=== PATIENT | female | born 1955 | race Caucasian/White ===

== ENCOUNTER 2023-11-15 14:00 | Outpatient (CLI) | payer MEDICARE, SELFPAY ==
--- NOTE | ~2023-11-15 | DEXA_ITS ---
Bone Density Report Name: VIVIAN MELENDREZ Age: 68 Sex: Female Ethnicity: White Date of : 1955 Indication: postmenopausal; screening for osteoporosis; height loss; Referring Provider: MICHELLE, AMY Florez Study: Bone densitometry was performed. Exam Date: November 15, 2023 Accession number: [id number] Bone Density: Region BMD T-score Z-score Classification AP Spine(L1-L4) 1.009 -0.3 1.6 Normal Femoral Neck (Left) 0.711 -1.2 0.4 Osteopenia Total Hip (Left) 0.976 0.3 1.7 Normal Femoral Neck (Right) 0.733 -1.0 0.6 Normal Total Hip (Right) 0.959 0.1 1.5 Normal Total Hip Mean 0.967 0.2 1.6 Normal World Health Organization criteria for BMD impression classify patients as: Normal (T-score at or above -1.0), Osteopenia (T-score between -1.0 and -2.5), or Osteoporosis (T-score at or below -2.5). 10-year Fracture Risk(1): Major Osteoporotic Fracture 8.4% Hip Fracture 0.8% Reported Risk Factors: [place] (), Neck BMD=0.711, BMI=33.6 (1) FRAX(R) Version 3.08. Fracture probability calculated for an untreated patient. Fracture probability may be lower if the patient has received treatment. Clinical Information Provided by Patient: Patient maximum height was 61 Menopause Age: 61 Drinks caffeinated beverages Onset of menses at age 16 Number of children 2 Impression: The patient has low bone mass, based on the Left Femoral Neck T-score. The patient has an estimated ten-year risk of hip fracture of 0.8% and an estimated ten-year risk of major fracture of 8.4%, based on the WHO FRAX algorithm. Discussion: BONE DENSITY IS LOW AT ONE OR MORE SKELETAL SITES. This patient's lowest T-score is low at one or more skeletal sites. It meets the World Health Organization's (WHO) criteria for ?low bone mass? (T-score between -1.0 and -2.5). The patient's 10-year risk of fracture as calculated by FRAX is less than the threshold where pharmacological therapy is recommended by the National Osteoporosis Foundation (NOF). However, all treatment decisions require clinical judgment and consideration of individual patient factors, including patient preferences, comorbidities, previous drug use, risk factors not captured in the FRAX model (e.g., frailty, falls, vitamin D deficiency, increased bone turnover, interval significant decline in bone density) and possible under or overestimation of fracture risk by FRAX. The patient should follow a healthful lifestyle (good nutrition with adequate calcium and vitamin D, and appropriate weight-bearing exercise). Follow-Up: Consider repeating this study in 2 to 3 years to reassess this patient's status, or sooner if there is some new clinical indication. Reported by: ADELE on 11/15/2023 2:28:00 PM.
--- NOTE | ~2023-11-15 | MM_ITS ---
EXAMINATION: MM screening yaneth BI w kailash HISTORY: Screening TECHNIQUE: Craniocaudal and mediolateral oblique 3-D tomosynthesis images were obtained and synthetic 2-D images were generated. CAD analysis was submitted and interpreted. COMPARISON: 05/10/2019 BREAST PARENCHYMAL COMPOSITION: Not dense: There are scattered areas of fibroglandular density. FINDINGS: There is no evidence of suspicious mass, calcification, or architectural distortion to sugg est malignancy in either breast. There has been no suspicious interval change. IMPRESSION: 1. No mammographic evidence of malignancy. 2. Recommend routine screening mammography in one year. BI-RADS Category 1: Negative Reviewed, dictated and finalized at location B.
== END 2023-11-15 14:01 | disposition home or self-care (01) ==
LOC: ANHIMG 14:04
PROVIDERS: PCP Family Medicine; Visit Provider Physician Assistant
DX: Z12.31 Encounter for screening mammogram for malignant neoplasm of breast (principal); Z78.0 Asymptomatic menopausal state; M85.852 Other specified disorders of bone density and structure, left thigh
CPT/HCPCS: 77063; 77067; 77080

== ENCOUNTER 2024-05-03 09:18 | Outpatient (CLI) | payer MEDICARE, SELFPAY ==
--- NOTE | 2024-05-03 11:00 | NEURO_ITS ---
Impression: # Complains of increasing numbness of hands. ? # Bilateral moderate Carpal Tunnel Syndrome. # No ulnar neuropathy. ? # Needle/EMG exam abnormal in APB?s. Nerve Conduction Studies Anti Sensory Summary Table ?Stim Site NR Peak (ms) P-T Amp (?V) Site1 Site2 Delta-P (ms) Dist (cm) Griffin (m/s) Left Median Anti Sensory (2-3nd Digit) Wrist ? 4.4 45.4 Wrist 2-3nd Digit 4.4 14.0 32 Wrist ? 4.5 25.4 Wrist 2-3nd Digit 4.4 14.0 32 Right Median Anti Sensory (2-3nd Digit) Wrist ? 4.8 24.2 Wrist 2-3nd Digit 4.8 14.0 29 Wrist ? 4.9 42.8 Wrist 2-3nd Digit 4.8 14.0 29 Left Radial Anti Sensory (Base 1st Digit) Wrist ? 1.7 41.1 Wrist Base 1st Digit 1.7 0.0 Right Radial Anti Sensory (Base 1st Digit) Wrist ? 2.1 22.4 Wrist Base 1st Digit 2.1 0.0 Left Ulnar Anti Sensory (5th Digit) Wrist ? 2.2 74.9 Wrist 5th Digit 2.2 14.0 64 Right Ulnar Anti Sensory (5th Digit) Wrist ? 2.0 57.5 Wrist 5th Digit 2.0 14.0 70 Motor Summary Table ?Stim Site NR Onset (ms) O-P Amp (mV) Site1 Site2 Delta-0 (ms) Dist (cm) Griffin (m/s) Left Median Motor (Abd Poll Brev) Wrist ? 4.7 3.1 Elbow Wrist 4.8 26.0 54 Elbow ? 9.5 2.9 Right Median Motor (Abd Poll Brev) Wrist ? 4.7 4.8 Elbow Wrist 4.8 26.0 54 Elbow ? 9.5 4.6 Left Ulnar Motor (Abd Dig Minimi) Wrist ? 2.5 7.8 A Elbow Wrist 5.0 28.0 56 A Elbow ? 7.5 4.5 Right Ulnar Motor (Abd Dig Minimi) Wrist ? 2.3 7.9 A Elbow Wrist 4.9 29.0 59 A Elbow ? 7.2 7.3 F Wave Studies ?NR F-Lat (ms) L-R F-Lat (ms) Left Median (Mrkrs) (Abd Poll Brev) ? 30.16 0.94 Right Median (Mrkrs) (Abd Poll Brev) ? 29.22 0.94 Left Ulnar (Mrkrs) (Abd Dig Min) ? 26.28 0.03 Right Ulnar (Mrkrs) (Abd Dig Min) ? 26.25 0.03 EMG ?Side Muscle Nerve Root Ins Act Fibs Amp Dur Recrt Comment Right 1stDorInt Ulnar C8-T1 Nml Nml Nml Nml Nml Right Ext Indicis Radial (Post Int) C7-8 Nml Nml Nml Nml Nml Right Ext Digitorum Radial (Post Int) C7-8 Nml Nml Nml Nml Nml Right BrachioRad Radial C5-6 Nml Nml Nml Nml Nml Right PronatorTeres Median C6-7 Nml Nml Nml Nml Nml Right Abd Poll Brev Median C8-T1 Nml Nml Nml >12ms +1 Right ABD Dig Min Ulnar C8-T1 Nml Nml Nml Nml Nml Left 1stDorInt Ulnar C8-T1 Nml Nml Nml Nml Nml Left Ext Indicis Radial (Post Int) C7-8 Nml Nml Nml Nml Nml Left Ext Digitorum Radial (Post Int) C7-8 Nml Nml Nml Nml Nml Left BrachioRad Radial C5-6 Nml Nml Nml Nml Nml Left PronatorTeres Median C6-7 Nml Nml Nml Nml Nml Left Abd Poll Brev Median C8-T1 Nml Nml Nml >12ms +1 Left ABD Dig Min Ulnar C8-T1 Nml Nml Nml Nml Nml MTDD
== END 2024-05-03 09:19 | disposition home or self-care (01) ==
PROVIDERS: PCP Family Medicine; Visit Provider Plastic Surgery
DX: G56.03 Carpal tunnel syndrome, bilateral upper limbs (principal)
CPT/HCPCS: 95886; 95911

== ENCOUNTER 2024-06-08 05:51 | Day surgery (SDC) | payer MEDICARE, SELFPAY ==
[2024-04-04 08:41] VITALS: BMI 33.8
--- OUTSIDE RECORDS SUMMARY | 2024-06-08 06:06 | XMS_ITS | Continuity of Care Document ---
Author Organization [facility] Address [address] [place] [address] Phone Care Team Providers Care Senior Mechanical Designer Name Role Phone Hood Noble Unavailable Unavailable Advance Directives Directive Yes / No Effective Date File Name No Information Encounters Encounter Description Practice Location Reason(s) For Visit Diagnoses Date Provider Providers Copied on Encounter [facility], [address], [place], [place], [address], [place] tel:[phone] [facility] No Information [phone] Doisy Edward. [address] , [address], [place], [address], [place]. tel:[phone] Family History Family Member Type Diagnosis Age At Onset No Information Payers Payer name Insurance type Covered republican ID Authoriza tion(s) No Information Social History Type Description Quantity Date Captured Comments Sex Female Smoking Status No Information Chief Complaint And Reason For Visit No Information Reason For Referral Reason For Referral No Information History Of Present Illness Encounter Date Complaint History Of Prese nt Illness No Information Functional Status Date Functional Assessmen t No Information Instructions Date Instruction Additional Infor mation No Information Assessments Type Assessment Date No Information Patient Care Teams Name Effective Dates (start - stop) Status Members No Information
[2024-06-08 06:22] VITALS: BP 143/81; PULSE 79; RESP 18; TEMP 37.1; O2SAT 98; BMI 33.6
[2024-06-08 06:39] LABS: Glucose Point of Care 186 mg/dl (65-105)
[2024-06-08] MEDS: LACTATED RINGERS 1,000 ML 30 ML IV CONT (06:39)
--- NOTE | 2024-06-08 06:48 | P.OP_ITS ---
Procedure Note - Detailed Date of Procedure 06/08/24 Pre-op Diagnosis LT Carpal Tunnel Syndrome, L MF mucous cyst Post-op Diagnosis Same Procedure Performed left ectr and L MF mucous cyst excision Surgeon Alina Wiley MD Electric Knife Operator michael villarreal pa-c Anesthesia MAC Description of Procedure INFORMED CONSENT: The patient was seen and examined and marked in the pre-op area.? The patient signed the consent form. PROCEDURE IN DETAIL:The patient taken back to OR on the stretcher in supine position. Time out performed with anesthesia, surgeon and staff agreeing on patient's name site and surgery to be performed SCDs were placed on the lower extremities and inflated. A tourniquet was placed on {left} upper extremity and antibiotics given IV After anesthesia administered sedation I injected {5}cc 1%lido with epi and 0.5% marcaine plain at the operative site The?{left upper extremity}?was prepped and draped in sterile fashion the??{left upper extremity} was? exsanguinated with Esmarch bandage and tourniquet inflated to 250mmHg I made a transverse incision in the {left} volar distal wrist crease through skin and dermis with 15 blade scalpel.? Littler scissors spread down to antebrachial fascia. A small incision was made in antebrachial fascia allowing access to Carpal tunnel. I proceeded with sequential dilation staying in line with the ring finger and hugging the hook of the hamate.? I then used the synovial elevator to free any adhesions from the underside of the transverse carpal ligament. Next I was able to insert the Microaire endoscopic carpal tunnel device with direct visualization of the transverse fibers on the monitor and proceeded with complete segmental retrograde release of the ligament in its entirety.? I irrigated with normal saline and closed with 4-0 monocryl for dermis and subcuticular closure. Next I proceeded with making a cuvilinear incision over the left middle finger dipjoint cyst/mass with 15 blade through skin and dermis. I elevated skin flap with 15 blade. I circumferentaillty dissected around the mucous cyst arising from dipjoint and excised it off joint capsule. An osteophyte was identified arising from the distal phalanx. Using a 15 blade and made an incision down through periosteum over the osteophyte. This was reflected with Jackson elevator. Rongeur was used to remove this osteophyte until smooth. I irrigated with normal saline. bipolkar cautery was used for the base of the cyst and osteophyte and the capuslar defect was not able to be repaired. 4-0 chromic was used for skin. A dressing of Dermabond for the wrist and xeroform for finger, 4x4, garland, and a volar splint and tube gauze was applied for patient safety, security, and comfort and secured with an jonas bandage after the tourniquet was let down noting the hand was warm and well perfused. The patient was then awaken from anesthesia and transferred to the recovery room in stable condition.? Complications - none EBL- 0cc Disposition - home in stable conditions michael villarreal pa-c was essential for positioning, retraction, closure and dress ing placement [facility] Billing Surgery - Charge Forward: Surgery Billing ([id number], [id number] and [id number],59 for michael)
--- NOTE | 2024-06-08 06:48 | WPDHPUPDATE1 ---
History and Physical Update Update Date/Time: 06/08/24 06:48 Patient seen and examined in pre-operative holding area. No interval change in medical history or symptoms. Patient recalls previous discussion of benefits and alternatives to procedure. Continues to desire to proceed with left endoscopic possible open carpal tunnel release and left middle finger mucous cyst excision . Reviewed procedure, post-op expectations and risks including but not limited to bleeding, infection, injury to tendon/nerve/vessel, decreased hand function, stiffness, RSD, no change or worsening of symptoms, recurrence. I discussed the possible use of assistants and their participation in the case. Patient stated understanding and signed the consent form wishing to proceed.
--- NOTE | 2024-06-08 06:59 | P.PNAN_ITS ---
Anes - Initial Pre Proc Eval Procedure: Operation Date: 06/08/24 07:30 Proposed Procedures p Left Endoscopic Carpal Tunnel Release, Possible Open Carpal Tunnel Release - Alina Wiley MD s Excision Mucous Cyst Left Middle Finger - Alina Wiley MD Date/Time: 06/08/24 06:59 Surgeon: Alina Wiley MD Pre Op Diagnosis: LT Carpal Tunnel Syndrome, Digital Mucous Cyst LT Patient Data Age: 69 Gender: F Height: 1.57 m Weight: 83.4 kg Last Vital Signs Temp 37.1 C 06/08/24 06:22 Pulse 79 06/08/24 06:22 Resp 18 06/08/24 06:22 BP 143/81 H 06/08/24 06:22 Pulse Ox 98 06/08/24 06:22 O2 Del Method Room Air 06/08/24 06:22 Allergies Allergy/AdvReac Type Severity Reaction Status Date / Time No Known Drug Allergies Allergy Unknown unknown Verified 06/08/24 06:12 Home Medications ?Medication ?Instructions ?Recorded ?Confirmed ?Type semaglutide 0.25 mg or 0.5 mg (2 0.5 mg (0.736 mL) subcut WEEKLY #9 12/10/23 06/08/24 Rx mg/3 mL) subcutaneous pen injector mL (Ozempic) metformin 1,000 mg tablet 1,000 mg PO BID #180 tabs 03/02/24 06/08/24 Rx simvastatin 40 mg tablet See Rx Instructions .Route 03/02/24 06/08/24 Rx .COMPLEX #90 tabs calcium 250 mg tablet 1,000 mg PO DAILY 05/18/24 06/08/24 History multivitamin (Daily Multi-Vitamin 1 tablet PO DAILY 05/18/24 06/08/24 History tablet) Laboratory Tests 06/08/24 06:35 POC Capillary Glucose 186 H mg/dl (65-105) Patient hx anesthesia problems: none Family hx anesthesia problems: none Results Review: All pre-operative results and documents have been reviewed as part of the pre- operative evaluation. [facility] Past Medical History Medical History Mixed hyperlipidemia Type 2 diabetes mellitus without complication, without long-term current use of insulin Vitamin D deficiency Family History Family History Other Diabetes mellitus Family history of coronary artery disease Social History Social History Smoking packs per day: 1 Smoking cigarettes per day: 20.0 Years smoked: 20 Smoking pack-years: 20.00 Smoking status: Former smoker Tobacco type: cigarettes Second hand tobacco smoke exposure: No Smoking end date: 04/26/99 Alcohol intake: current Alcohol use details: seldom; socially Substance use: never Substance use type: does not use Living arrangements: with family Van - Cara Final PreProcedure Day of Procedure 06/08/24 06:59 Patient weight: obese Heart: regular rate and rhythm Lungs: clear to auscultation Airway: Mallampati scale class III Neurological: alert and oriented Last oral intake: >/= 8 hours ASA classification: III Emergent: no Anesthetic plan: proceed Anesthesia type and monitoring: general GIVS and standard monitoring Results Review: All pre-operative results and documents have been reviewed as part of the pre- operative evaluation. Informed Consent: The patient's anesthetic plan and its attendant risks and benefits were discussed with the patient/family/POA. Questions were solicited and answers provided to the satisfaction of the patient/family/POA.
[2024-06-08] MEDS: ceFAZolin SODIUM 2 GM/20 ML SW SYRINGE IV PUSH (07:25)
[2024-06-08] MEDS: BUPivacaine HCL 0.5% 10 ML AMP 2.5 ML INFILTRATE (07:29)
[2024-06-08] MEDS: LIDO 1%/EPINEPHRINE 1:100,000 10 ML VIAL 2.5 ML INFILTRATE (07:29)
[2024-06-08 07:55] VITALS: BP 116/54; PULSE 81; RESP 16; O2SAT 95
--- NOTE | 2024-06-08 08:02 | WPDANESPN ---
Anes - Prog Note Post-Op Date/Time: 06/08/24 08:02 Cardiovascular status: normal Respiratory status: normal Airway patency: baseline Mental status: baseline Post-Op hydration status: normal Vital Signs: Last Vital Signs Temp 37.1 C 06/08/24 06:22 Pulse 79 06/08/24 06:22 Resp 18 06/08/24 06:22 BP 143/81 H 06/08/24 06:22 Pulse Ox 98 06/08/24 06:22 O2 Del Method Room Air 06/08/24 06:22 Pain Score (VAS): 0 06/08/24 06:35 POC Capillary Glucose 186 H Patient Feedback: Patient satisfied with anesthetic care.
[2024-06-08 08:05] VITALS: BP 111/58; PULSE 74; RESP 15; O2SAT 93
[2024-06-08 08:15] VITALS: BP 129/59; PULSE 82; RESP 15; O2SAT 96
[2024-06-08 08:25] VITALS: BP 138/80; PULSE 70; RESP 15; O2SAT 95
== END 2024-06-08 08:45 | disposition home or self-care (01) ==
PROVIDERS: PCP Family Medicine; Visit Provider Plastic Surgery
PROC: 01N54ZZ Release Median Nerve, Percutaneous Endoscopic Approach (ICD-10-PCS; CPT 29848; principal; 2024-06-08 07:30)
PROC: (CPT 29848; 2024-06-08 07:30)
DX: G56.02 Carpal tunnel syndrome, left upper limb (principal); M25.742 Osteophyte, left hand
CPT/HCPCS: 29848; 26210

== ENCOUNTER 2024-06-08 07:00 | Outpatient (NON) | payer MEDICARE, SELFPAY ==
--- OUTSIDE RECORDS SUMMARY | 2024-06-09 11:30 | XMS_ITS | Continuity of Care Document ---
Author Organization [facility] Address [address] [place] [address] Phone Care Team Providers Care Utility Clerk Name Role Phone Hood Noble Unavailable Unavailable Advance Directives Directive Yes / No Effective Date File Name No Information Encounters Encounter Description Practice Location Reason(s) For Visit Diagnoses Date Provider Providers Copied on Encounter [facility], [address], [place], [place], [id number], [place] tel:[phone] [facility] No Information 0 [phone] Doisy Edward. [address] , [address], [place], [address], [place]. tel:[phone] Family History Family Member Type Diagnosis Age At Onset No Information Payers Payer name Insurance type Covered alliance party ID Authoriza tion(s) No Information Social History [...]
== END 2024-06-08 07:01 | disposition home or self-care (01) ==
LOC: ANHLAB 06-09 11:22
PROVIDERS: PCP Family Medicine; Visit Provider Plastic Surgery
DX: M25.842 Other specified joint disorders, left hand (principal); M67.449 Ganglion, unspecified hand
CPT/HCPCS: 88305

== ENCOUNTER 2024-07-27 06:49 | Day surgery (SDC) | payer MEDICARE, SELFPAY ==
[2024-05-11 08:37] VITALS: BMI 33.8
[2024-07-07 09:36] VITALS: BMI 33.7
--- NOTE | 2024-07-27 06:43 | WPDHPUPDATE1 ---
History and Physical Update Update Date/Time: 07/27/24 06:43 Patient seen and examined in pre-operative holding area. No interval change in medical history or symptoms. Patient recalls previous discussion of benefits and alternatives to procedure. Continues to desire to proceed with right endoscopic possible open carpal tunnel release. Reviewed procedure, post-op expectations and risks including but not limited to bleeding, infection, injury to tendon/nerve/vessel, decreased hand function, stiffness, RSD, no change or worsening of symptoms. I discussed the possible use of assistants and their participation in the case. Patient stated understanding and signed the consent form wishing to proceed.
--- NOTE | 2024-07-27 06:44 | W.PM.PROC2 ---
Procedure Note - Detailed Date of Procedure 07/27/24 Pre-op Diagnosis Right Carpal Tunnel Syndrome Post-op Diagnosis Same Procedure Performed right ectr Surgeon Alina Wiley MD Junior Software Engineer michael villarreal pa-c Anesthesia MAC Description of Procedure INFORMED CONSENT: The patient was seen and examined and marked in the pre-op area.? The patient signed the consent form. PROCEDURE IN DETAIL:The patient taken back to OR on the stretcher in supine position. Time out performed with anesthesia, surgeon and staff agreeing on patient's name site and surgery to be performed SCDs were placed on the lower extremities and inflated. A tourniquet was placed on {right} upper extremity and antibiotics given IV After anesthesia administered sedation I injected {5}cc 1%lido with epi and 0.5% marcaine plain at the operative site The?{right upper extremity}?was prepped and draped in sterile fashion the??{right upper extremity} was? exsanguinated with Esmarch bandage and tourniquet inflated to 250mmHg I made a transverse incision in the {right} volar distal wrist crease through skin and dermis with 15 blade scalpel.? Littler scissors spread down to antebrachial fascia. A small incision was made in antebrachial fascia allowing access to Carpal tunnel. I proceeded with sequential dilation staying in line with the ring finger and hugging the hook of the hamate.? I then used the synovial elevator to free any adhesions from the underside of the transverse carpal ligament. Next I was able to insert the Microaire endoscopic carpal tunnel device with direct visualization of the transverse fibers on the monitor and proceeded with complete segmental retrograde release of the ligament in its entirety.? I irrigated with normal saline and closed with 4-0 monocryl for dermis and subcuticular closure. A dressing of Dermabond, 4x4, garland, and a volar splint was applied for patient safety, security, and comfort and secured with an jonas bandage after the tourniquet was let down noting the hand was warm and well perfused. The patient was then awaken from anesthesia and transferred to the recovery room in stable condition.? Complications - none EBL- 0cc Disposition - home in stable conditions Michael Villarreal PA-C was essential for positioning, retraction, closure and dressing placement [facility] Billing Surgery - Charge Forward: Surgery Billing ([id number] for michael)
--- OUTSIDE RECORDS SUMMARY | 2024-07-27 07:07 | XMS_ITS | Continuity of Care Document ---
Author Organization [facility] Address [address] [place] [address] Phone Care Team Providers Care Supervisor Rubber Covering Name Role Phone Hood Noble Unavailable Unavailable Advance Directives Directive Yes / No Effective Date File Name No Information Encounters Encounter Description Practice Location Reason(s) For Visit Diagnoses Date Provider Providers Copied on Encounter [facility], [address], [place], [place], [address], [place] tel:[phone] [facility] No Information 0 [phone] Doisy Edward. [address] , [address], [place], [address], [place]. tel:[phone] Family History Family Member Type Diagnosis Age At Onset No Information Payers Payer name Insurance type Covered democrat ID Authoriza tion(s) No Information Social History [...]
[2024-07-27 07:25] VITALS: BP 140/76; PULSE 73; RESP 16; TEMP 36.7; O2SAT 99; BMI 32.4
[2024-07-27 07:44] LABS: Glucose Point of Care 109 mg/dl (65-105)
[2024-07-27] MEDS: LACTATED RINGERS 1,000 ML 30 ML IV CONT (07:45)
--- NOTE | 2024-07-27 07:58 | P.PNAN_ITS ---
Anes - Initial Pre Proc Eval Procedure: Operation Date: 07/27/24 09:00 Proposed Procedures p Right Endoscopic Carpal Tunnel Release, Possible Open Carpal Tunnel Release - Alina Wiley MD Date/Time: 07/27/24 07:58 Surgeon: Alina Wiley MD Pre Op Diagnosis: Right Carpal Tunnel Syndrome Patient Data Age: 69 Gender: F Height: 1.55 m Weight: 77.9 kg Last Vital Signs Temp 36.7 C 07/27/24 07:25 Pulse 73 07/27/24 07:25 Resp 16 07/27/24 07:25 BP 140/76 07/27/24 07:25 Pulse Ox 99 07/27/24 07:25 O2 Del Method Room Air 07/27/24 07:25 Allergies Allergy/AdvReac Type Severity Reaction Status Date / Time No Known Drug Allergies Allergy Unknown unknown Verified 07/27/24 07:18 Home Medications ?Medication ?Instructions ?Recorded ?Confirmed ?Type semaglutide 0.25 mg or 0.5 mg (2 0.5 mg (0.736 mL) subcut WEEKLY #9 12/10/23 07/27/24 Rx mg/3 mL) subcutaneous pen injector mL (Ozempic) metformin 1,000 mg tablet 1,000 mg PO BID #180 tabs 03/02/24 07/27/24 Rx simvastatin 40 mg tablet See Rx Instructions .Route 03/02/24 07/27/24 Rx .COMPLEX #90 tabs calcium 250 mg tablet 1,000 mg PO DAILY 05/18/24 07/07/24 History multivitamin (Daily Multi-Vitamin 1 tablet PO DAILY 05/18/24 07/27/24 History tablet) lisinopril 2.5 mg tablet 2.5 mg PO DAILY #90 tabs 07/05/24 07/27/24 Rx Laboratory Tests 07/27/24 07:42 POC Capillary Glucose 109 H mg/dl (65-105) Patient hx anesthesia problems: none Family hx anesthesia problems: none Results Review: All pre-operative results and documents have been reviewed as part of the pre- operative evaluation. [facility] Past Medical History Medical History Mixed hyperlipidemia Type 2 diabetes mellitus without complication, without long-term current use of insulin Vitamin D deficiency Family History Family History Other Diabetes mellitus Family history of coronary artery disease Social History Social History Smoking packs per day: 0 Smoking cigarettes per day: 0.0 Years smoked: 20 Smoking pack-years: 0.00 Smoking status: Former smoker Tobacco type: cigarettes Second hand tobacco smoke exposure: No Smoking end date: 04/26/94 Alcohol intake: current Alcohol use details: seldom; socially Substance use: never Substance use type: does not use Living arrangements: with family Spiritual care concerns: No Anes - Eval Final PreProcedure Day of Procedure 07/27/24 07:58 Patient weight: obese Heart: regular rate and rhythm Lungs: clear to auscultation Airway: Mallampati scale class II Neurological: alert and oriented Last oral intake: >/= 8 hours ASA classification: III Emergent: no Anesthetic plan: proceed Anesthesia type and monitoring: general GIVS and standard monitoring Results Review: All pre-operative results and documents have been reviewed as part of the pre- operative evaluation. Informed Consent: The patient's anesthetic plan and its attendant risks and benefits were discussed with the patient/family/POA. Questions were solicited and answers provided to the satisfaction of the patient/family/POA.
[2024-07-27] MEDS: ceFAZolin SODIUM 2 GM/20 ML SW SYRINGE IV PUSH (08:44)
[2024-07-27] MEDS: BUPivacaine HCL 0.5% PF 30 ML VIAL 5 ML INFILTRATE (08:57)
[2024-07-27] MEDS: LIDO 1%/EPINEPHRINE 1:100,000 10 ML VIAL 5 ML INFILTRATE (08:57)
[2024-07-27 09:03] VITALS: BP 96/54; PULSE 70; RESP 14; O2SAT 98
[2024-07-27 09:13] VITALS: BP 101/59; PULSE 70; RESP 14; O2SAT 95
--- NOTE | 2024-07-27 09:13 | WPDANESPN ---
Anes - Prog Note Post-Op Date/Time: 07/27/24 09:13 Cardiovascular status: normal Respiratory status: normal Airway patency: baseline Mental status: baseline Post-Op hydration status: normal Vital Signs: Last Vital Signs Temp 36.7 C 07/27/24 07:25 Pulse 73 07/27/24 07:25 Resp 16 07/27/24 07:25 BP 140/76 07/27/24 07:25 Pulse Ox 99 07/27/24 07:25 O2 Del Method Room Air 07/27/24 07:25 Pain Score (VAS): 0/10 07/27/24 07:42 POC Capillary Glucose 109 H Patient Feedback: Patient satisfied with anesthetic care.
[2024-07-27 09:23] VITALS: BP 108/56; PULSE 63; RESP 14; O2SAT 95
[2024-07-27 09:33] VITALS: BP 116/61; PULSE 62; RESP 14; O2SAT 98
== END 2024-07-27 09:40 | disposition home or self-care (01) ==
PROVIDERS: PCP Family Medicine; Visit Provider Plastic Surgery
PROC: 01N54ZZ Release Median Nerve, Percutaneous Endoscopic Approach (ICD-10-PCS; CPT 29848; principal; 2024-07-27 09:00)
DX: G56.01 Carpal tunnel syndrome, right upper limb (principal)
CPT/HCPCS: 29848

== ENCOUNTER 2025-03-29 09:04 | Outpatient (CLI) | payer OTHER, SELFPAY ==
[2025-03-29 09:37] LABS: Hematocrit 45.4 % (37.0-47.0); Hemoglobin 15.3 g/dL (12.0-15.0); Mean Corpuscular HGB Conc 33.7 g/dl (32-36); Mean Corpuscular Hemoglobin 29.9 pg (26-34); Mean Corpuscular Volume 88.7 fl (80-100); Platelet Count Result 214 k/mm3 (150-375); Red Blood Count 5.12 M/mm3 (4.2-5.4); White Blood Count 6.0 K/mm3 (4.5-10.0)
[2025-03-29 09:52] LABS: Hemoglobin A1C 5.6 % (<5.7)
[2025-03-29 09:57] LABS: Iron 88 ug/dL (37-170)
[2025-03-29 09:58] LABS: Alanine Aminotransferase 17 U/L (6-35); Albumin Level 4.6 g/dL (3.5-5.1); Alkaline Phosphatase 71 U/L (38-126); Anion Gap 3 mmol/L (4-12); Aspartate Amino Transferase 27 U/L (14-36); Bilirubin,Total 0.6 mg/dL (0.2-1.3); Blood Urea Nitrogen 16 mg/dL (7-17); Calcium 9.6 mg/dL (8.4-10.2); Carbon Dioxide 29 mmol/L (22-30); Chloride 105 mmol/L (98-107); Estimated Glomerular Filt Rate > 60; Glucose 90 mg/dL (65-110); Potassium 4.3 mmol/L (3.4-5.0); Sodium 137 mmol/L (137-145); Total Protein 7.9 g/dL (6.3-8.2)
[2025-03-29 10:05] LABS: Prealbumin 25.2 mg/dL (17.6-36.0)
[2025-03-29 11:09] LABS: Vitamin B12 630.0 pg/mL (239-931)
[2025-04-01 09:07] LABS: Vit. B1, Whole Blood 116.2 nmol/L (66.5-200.0)
[2025-04-02 01:07] LABS: Copper, Serum or Plasma 112 ug/dL (80-158)
== END 2025-03-29 09:05 | disposition home or self-care (01) ==
LOC: ANHLAB 09:08
PROVIDERS: PCP Family Medicine; Visit Provider Surgery Plastic and Reconstructive Surgery
DX: R63.4 Abnormal weight loss (principal)
CPT/HCPCS: 36415; 80053; 82525; 82607; 82746; 83036; 83540; 84134; 84425; 85027

== ENCOUNTER 2025-04-10 14:47 | Outpatient (CLI) | payer MEDICARE, SELFPAY ==
--- NOTE | ~2025-04-10 | CT_ITS ---
EXAMINATION: CT abdomen pelvis w con DATE: 04/10/2025 15:26 INDICATION: Intra-abdominal and pelvic swelling. TECHNIQUE: Computed tomography (CT) of the abdomen and pelvis was performed with 100 mL Omnipaque 350 intravenous contrast. Automated exposure control and iterative reconstruction technique were employed. The dose-length product was 485.58 mGy-cm. COMPARISON: None. FINDINGS: The visualized portions of the lung bases demonstrate mild atelectasis. No pleural effusion. The heart size is normal. No pericardial effusion. There is a small sliding hiatal hernia. The liver, gallbladder, spleen, pancreas, adrenal glands, and right kidney are normal. There is a 5 mm cyst in left kidney. There is diverticulosis of the colon without evidence of diverticulitis. There are no dilated loops of bowel. The appendix is normal. There are no pathologically enlarged lymph nodes. There is no free intraperitoneal fluid. There is mild thoracic and lumbar spondylosis. IMPRESSION: 1. Small sliding hiatal hernia. Reviewed, dictated and finalized at location E. TENANCE DEPARTMENT MANAGER
--- OUTSIDE RECORDS SUMMARY | 2025-04-10 17:17 | XMS_ITS | Data Portability ---
Author Organization [facility] [place] Address [address] [place] [address] Care Team Providers Care Food Cart Attendant Name Role Phone KARON QUINONEZ Primary Care Provider Assessment Encounter Date Assessment Date Assessment LastModified by Organization Details LastModified Time 04/16/2021 04/16/2021 pap done US for bleeding discussed need for endometrial sampling to rule out hyperplasia or malignancy mammo ordered encouraged diabetic control to avoid infections diflucan x2 [email or web address] Not available 04/16/2021 12:03:00 05/12/2021 05/12/2021 US results reviewed and discussed in depth. EMB done, will call with results. working to control DM better. [email or web address] Not available 05/12/2021 13:06:47 Plan of Treatment Reminders Order Date Submit Date Provider Last Modified By Organization Details Last Modified Time Details Appointments None recorded. Lab None recorded. Referral None recorded. Procedures None recorded. Surgeries None recorded. Imaging US, pelvis 2020 021 [email or web address] [address], [place], [address], 15:35:39 US, transvagina l 2020 021 [email or web address] [address], [place], [address], 16:17:04 Medication Orders fluconazole 150 mg tablet 2020 021 SOURAV [facility] [id number] [facility], [address], [place], [address], 11:52:06 Patient TargetsNo targets recorded. Patient InstructionsNo instructions recorded. Reason for Referral None Reported. Results Created Date Observation Date Name Description Value Unit Range Abnormal Flag Note LastModifiedBy Organization Detail LastModifiedTime 04/16/20 21 04/16/2021 IMAGE GUIDE D PAP AND HPV REGAR DLESS image guided Pap, HPV regardless of Pap result SEE RESULT S BELOW CASE REPOR T: Cytol ogy Gynec ologi leo Repor t Case: [id number] Autho mariah g Provi bryan: Valeria Pollard, MD Walker cted: 04/16 1624 Order ing Locat ion: [place] Patho logy Recei hal: 04/17 0039 First Scree n: Suyapa Hickman , CT Speci men: Scree harleen Pap - Image d, Cervi x STATE MENT OF ADEQU ACY: Satis facto ry for evalu ation Trans forma tion zone compo nent prese nt FINAL DIAGN OSIS: Negat jesus for Intra epith elial Lesio n or Keshawn villalobos (NIL) . Elect geetha jordan niharika d by Suyapa Hickman , CT on 022 at 12:44 PM ----- ----- ----- ----- ----- ----- ----- ----- ----- ----- ----- ----- ----- ----- ----- ----- ----- ---- HPV RESUL TS: HPV mRNA E6/E7 : No HPV mRNA Detec lucho NOTE: This high risk HPV mRNA assay detec ts fourt een high- risk HPV types (16, 18, 31, 33, 35, 39, 45, 51, 52, 56, 58, 59, 66, 68) witho ut diffe renti ation . COMME NT: Note: This speci men was revie wed by a Cytot echno logis t and/o r Patho logis t (as indic ated in this repor t) after evalu ation using the Thinp rep Imagi ng Syste m. CLINI LEO INFOR MATIO N: Menst rual Statu s: LMP (if appli cable ): Clini leo Histo ry/Pr eviou s Pap: Type of Neopl leticia (if appli cable ): Signi fican t Clini leo Findi ngs: Other Histo ry: Hormo nam (if appli cable ): PAP EDUCA JACINTO L NOTE: The Pap Test is a scree harleen test with an inher ent false negat jesus rate. Liqui d-bas e sampl ing may decre ase, but will not elimi karen, false negat jesus resul ts. A negat jesus resul t does not precl ude the prese nce and/o r devel opmen t of disea se, since the prese nce of abnor mal cells in the sampl e depen ds on the locat ion of the lesio n and sampl ing techn ique. Chuck nued regul ar scree harleen is the best metho d of cance r preve ntion . If repor lucho cytol ogic findi ng do not corre late with physi leo and/o r histo rical findi ngs, furth er inves tigat ion is recom thuy d, as clini compa burt nted. Not Available [facility] (Lab) [address], [place], [address], 04/28/2021 13:47:54 05/12/19 22 05/12/2021 SURGI LEO PATHO LOGY surgical pathology SEE RESULT S BELOW CASE REPOR T: Surgi leo Patho logy Repor t Case: [id number] Autho mariah g Provi bryan: Valeria Pollard MD Colle cted: 05/12 1530 Order ing Locat ion: [place] Patho [place] Recei hal: 05/13 0122 Patho logis t: Harika Sandoval MD Speci men: Endom etriu m, emb FINAL DIAGN OSIS: Endom etriu m, biops y: -Frag ments of benig n endom etria l polyp . -No endom etria l hyper plasi a or malig nant tumor ident ified . Elect geetha mcguire by Harika Sandoval MD on 2021 at 2:27 PM ----- ----- ----- ----- ----- ----- ----- ----- ----- ----- ----- ----- ----- ----- ----- ----- ----- ---- CLINI LEO INFOR MATIO N: not provi ded MICRO SCOPI C DESCR IPTIO N: A micro scopi c exami natio n was perfo rmed. GROSS DESCR IPTIO N: A. Endom etriu m. The speci men is label ed with the patie nt's name, ryan linder and EMB. Recei hal in forma kayla is a 0.4 cm fragm ent of white -corea tissu e. The entir e speci men is submi tted in one casse tte. Gross ed by Dino Mills on Not Available [facility] (Lab) [address] [facility], [place], [address], 05/13/2021 15:30:28 04/23/20 21 04/23/2021 US, taco hoover No observ ation record ed. [email or web address] [place] [address], [place], [address], 04/23/2021 19:08:16 04/23/20 21 04/23/2021 US, claudia vazquez No observ ation record ed. [email or web address] [place] [address], [place], [address], 04/23/2021 19:08:24 04/23/20 21 04/23/2021 US, taco s No observ ation record ed. catie Mckeon [address], [place], [address], 05/13/2021 17:07:45 Result Notes None recorded. Procedures Surgical History Date Name Laterality Status Provider Name and Address Organization Details Recorded Time 05/12/19 Endometrial Biopsy completed Valeria Sandhu MD [address], [place], [address], [facility] 05/12/2021 13:06:11 04/26/19 Date of Last Pap Smear completed [facility] 04/16/2021 10:58:25 Tubal Ligation completed [facility] 04/16/2021 09:16:32 Imaging Results None recorded. Procedure Notes None recorded. Medical Equipment None Reported. Allergies No known drug allergies Medications Name Sig Start Date Stop Date Status Note LastModified by Organization Details LastModified Time fluconazole 150 mg tablet Take 1 tablet every 72 hours by oral route. active Not Available Not Available No t Available meloxicam 15 mg tablet active Not Available Not Available Not Available spironolactone 25 mg tablet active Not Available Not Available Not Available simvastatin 40 mg tablet active Not Available Not Available No t Available metformin 1,000 mg tablet active Not Available Not Available No t Available Vitals Date Recorded Body height Body mass index (BMI) Body weight Systolic And Diastolic Systolic And Diastolic Provider Name and Address Organization Details Last Updated DateTime 05/12/2021 157.48 cm 35.5 kg/m2 69476.92 g 162/83 mm[Hg] 140/82 mm[Hg] [facility] 2 12:44:52 Date Recorded Body height Body mass index (BMI) Body weight Systolic And Diastolic Systolic And Diastolic Provider Name and Address Organization Details Last Updated DateTime 04/16/2021 157.48 cm 35.8 kg/m2 28462.1 g 146/83 mm[Hg] 138/78 mm[Hg] [facility] 1 11:02:32 Social History Question Answer Notes LastModified by Organizat ion Details LastModified Time Tobacco Smoking Status Never Smoker Nadine Johnssophia Robley [facility] [place] 04/16/2021 09:17:14 Have You Ever Been Counseled For Unhealthy Alcohol Use? No Information not available 04/16/2021 Has Tobacco Cessation Counseling Been Provided? No Information not available 04/16/2021 Sex: Unknown Functional Status Question Answer Note LastModified by Organizat ion Details LastModified Time Do you use any illicit or recreational drugs? No Information not available 04/16/2021 Do you or have you ever used any other forms of tobacco or nicotine? No Information not available 04/16/2021 What is your level of alcohol consumption? Occasional Information not available 04/16/2021 Mental Status None recorded. Family History Nothing Reported. Medical History Condition Response Other N Blood Transfusion N Dermatologic Disorders N Gestational Diabetes N Anxiety Disorder N Autoimmune disease N Arthritis N Polyps N Infertility N Acid Reflux (GERD) N Cancer N Varicosities N Stroke N Neurologic/Epilepsy N Fibromyalgia N Headaches N Kidney Disease N Heart Problems N Kidney or Bladder Problems N Eating Disorder N Art (IVF or FET) N Hepatitis/Liver Disease N No Past Medical History N Urinary Tract Infection N Asthma N Trauma/Violence N Thrombophilias N Allergies (Food, seasonal, environmental ) N Breast Cancer N Drug/Latex Allergies/Reactions N Lung Disease N Defects or Inherited Disease N Breast Problem N Hematologic disorders N Anesthesia Complications N History of STI N Deep Vein Thrombosis N Polycystic ovary syndrome N History of abnormal pap N Endometriosis N High Cholesterol N Thyroid Problems N GI Problems N Anemia N Psychiatric Illness N Ovarian Cancer N Diabetes Y Pulmonary (TB, Asthma) N Eczema N Abuse/Domestic Violence N Depression/ depression N Heart Disease N Pre-Eclampsia N Hypertension N Osteoporosis N Gynecological History Statement/Question Response Date of Last Pap Smear 04/26/2012 Current Control Method Tubal Ligat ion Obstetrics History GPAL:G 2 P 2 0 0 2 Type Value Full Term 2 Living 2 Total 2 Past Encounters Encounter ID Performer Location Encounter Start Date Encounter Closed Date Diagnosis/Indication Diagnosis SNOMED-CT Code Diagnosis ICD10 Code Diagnosis IMO Codes Diagnosis Note [id number] Valeria Sandhu MD [place] [address] [address] 04/16/2021 10:48:04 04/16/2021 12:05:24 Postmenopausal bleeding 11144195 N95.0 Candidal vulvovaginitis 85888751 B37.3 Type 2 cassie betes mellitus 34762529 E11.9 Screening mammography 24 958277 Z12.31 Screening for malignant neoplasm of cervix 486192353 Z12.4 [id number] Valeria Sandhu MD [place] [address] [address] 04/23/2021 13:53:55 04/23/2021 14:50:34 Postmenopausal bleeding 05835203 N95.0 [id number] Valeria Sandhu MD [place] [address] [address] 05/12/2021 12:36:25 05/12/2021 13:29:30 Postmenopausal bleeding 62171544 N95.0 Health Concerns Section Related Observation LastModified by Organization Detai ls LastModified Time None Recorded Concern Status LastModified by Organization Details LastModified Time None Recorded Advance Directives Directive None Recorded Payers Insurance Date Sequence Insurance Name Policy Number Policy Crowell Covered Member ID Crowell Member ID Guarantor Name 05/05/2021 1 [place] Kylee Hodges [id number] Kylee Hodges 05/09/2021 2 [place] [id number] Kylee Tracie [id number] Kylee Hodges Notes Date Note Type Note Provider Name and Address Organization Details Recorded Time 04/16/2021 text/html Patient is a 66yo who presents for a couple complaints. She is sexually active. Menopause 6 or 7 years ago, then had 6 days of red spotting this month. Had stomach cramping with it. Then a day or two after it started, got itching of vulva/introitus. Is cleaning it well, but hasn't tried anything on it. declines need for std testing. Does have DM and admits to not eating well lately. Concerns: last WWE: 10 years or so, mammo 2 years Depression:denies Domestic violence:denies Valeria Sandhu MD [address], [place], [address], [facility] [place] 04/16/2021 12:03:12 05/12/2021 text/html Kylee is a 66yuo here for follow up 6 d of red spotting in menopausal setting. US 04/23 with 9mm cystic endometrium and 2cm ant fibroid, normal ovaries. She has not had further spotting. Itching is gone s/p diflucan. Valeria Sandhu MD [address], [place], [address], [facility] [place] 05/12/2021 13:07:01 OBGyn Episode Ob Episode Information Episode Created Date Number of Fetuses Patient Bloodtype Patient rh Status Prepregnancy Weight lbs Domestic Partner Domestic Partner Phone Father Name Secretary Administrative Assistant Status 04/16/20 21 1 CLOSED Fetus Data First Name Last Name Admitted to NICU Weight (g) Sex Living Outcome Pediatric Complications Fetus ID Race Codes Race Delivery Type 3713.55 7704 M Full Term [id number] Vaginal Delivery Kristopher Calculation Initial Kristopher Date Initial Exam Date Initial Exam Provider Initial Ultrasound Date Last Menstrual Period Date Ultra Sound Weeks Gestation 0 Eighteen To Twenty Week Kristopher Update Ultra Sound Date Fundal Height At Umbil Quickening Date Ultra Sound Latest Weeks Gestation Final Kristopher Confirmed By Final Kristopher Confirmed Date Final Kristopher Date Ultra Sound Latest Days Gestation 0 0 Menstrual History Last Menstrual Date Menses Monthly On Bcp Conception Prior Menses Frequency Hcg Plus Date Menarche Onset Age Delivery Information Delivery Date Delivery Type Labor Anesthesia Weeks Gestation Incision Type Labor Labor Length Hrs Delivered By Post Complications Tubal Sterilization Discharge Date Comments 1 Discharge Information Feeding Method Contraceptive Method Maternal HG B and HCT Levels Ob Episode Information Episode Created Date Number of Fetuses Patient Bloodtype Patient rh Status Prepregnancy Weight lbs Domestic Partner Domestic Partner Phone Father Name Secretary Administrative Assistant Status 04/16/20 21 1 CLOSED Fetus Data First Name Last Name Admitted to NICU Weight (g) Sex Living Outcome Pediatric Complications Fetus ID Race Codes Race Delivery Type 3401.94 M Full Term [id number] Vaginal Delivery Kristopher Calculation Initial Kristopher Date Initial Exam Date Initial Exam Provider Initial Ultrasound Date Last Menstrual Period Date Ultra Sound Weeks Gestation 0 Eighteen To Twenty Week Kristopher Update Ultra Sound Date Fundal Height At Umbil Quickening Date Ultra Sound Latest Weeks Gestation Final Kristopher Confirmed By Final Kristopher Confirmed Date Final Kristopher Date Ultra Sound Latest Days Gestation 0 0 Menstrual History Last Menstrual Date Menses Monthly On Bcp Conception Prior Menses Frequency Hcg Plus Date Menarche Onset Age Delivery Information Delivery Date Delivery Type Labor Anesthesia Weeks Gestation Incision Type Labor Labor Length Hrs Delivered By Post Complications Tubal Sterilization Discharge Date Comments 0 Discharge Information Feeding Method Contraceptive Method Maternal HG B and HCT Levels
== END 2025-04-10 14:48 | disposition home or self-care (01) ==
PROVIDERS: PCP Family Medicine; Visit Provider Student in an Organized Health Care Education/Training Program
DX: R19.00 Intra-abdominal and pelvic swelling, mass and lump, unspecified site (principal); K44.9 Diaphragmatic hernia without obstruction or gangrene
CPT/HCPCS: 74177; Q9967